=== PATIENT | male | born 1955 | race Caucasian/White ===

== ENCOUNTER 2023-01-18 17:26 | Observation (INO) | payer MEDICARE ==
[2023-01-18 18:36] LABS: PROTHROMBIN TIME 10.2 SEC (9.0-11.1); PTT,PARTIAL THROMBOPLSTIN TIME 28.5 SEC (23.6-29.8)
[2023-01-18] MEDS ORDERED: Apixaban 5 MG Tab PO ONE (18:44)
[2023-01-18] MEDS ORDERED: Acetaminophen 325 MG Tab PO PRN (21:15)
[2023-01-19] MEDS: Sertraline 50 MG Tab PO SCH ×3 (07:36→19:08)
[2023-01-19] MEDS ORDERED: Apixaban 5 MG Tab PO SCH (08:00)
[2023-01-19] MEDS ORDERED: Sodium Chloride 0.9% 10 ML Syringe FLUSH PRN (08:40)
[2023-01-19] MEDS: Pantoprazole 40 MG Tab.CR PO SCH (09:05)
[2023-01-19] MEDS: Enoxaparin 80 MG/0.8 ML Syringe SUBCUT SCH (14:45)
[2023-01-19] MEDS ORDERED: Tamsulosin 0.4 MG Cap.ER PO SCH (20:00)
[2023-01-19] MEDS ORDERED: atorvaSTATin 40 MG Tab PO SCH (20:00)
[2023-01-20] MEDS: Enoxaparin 80 MG/0.8 ML Syringe SUBCUT SCH ×2 (00:11→07:11)
[2023-01-20] MEDS: Pantoprazole 40 MG Tab.CR PO SCH (07:11)
[2023-01-20] MEDS: Sertraline 50 MG Tab PO SCH (07:11)
[2023-01-20 07:19] LABS: BASOPHILS ABSOLUTE AUTO 0.01 K/uL (0.00-0.20); BASOPHILS PERCENT AUTO 0.2 % (0.0-2.0); EOSINOPHILS ABSOLUTE AUTO 0.08 K/uL (0.00-0.50); EOSINOPHILS PERCENT AUTO 1.8 % (0.0-5.0); HEMATOCRIT 40.8 % (39.0-49.0); HEMOGLOBIN 13.4 g/dL (13.1-16.8); LYMPHOCYTES ABSOLUTE AUTO 1.62 K/uL (0.50-3.50); LYMPHOCYTES PERCENT AUTO 36.6 % (10.0-50.0); MEAN CORPUSCULAR HEMOGLOBIN 29.2 pg (28.2-33.3); MEAN CORPUSCULAR HGB CONC 32.8 g/dL (31.7-36.0); MEAN CORPUSCULAR VOLUME 88.9 fL (84.0-98.0); MONOCYTES ABSOLUTE AUTO 0.55 K/uL (0.00-1.00); MONOCYTES PERCENT AUTO 12.4 % (2.0-14.0); NEUTROPHILS ABSOLUTE AUTO 2.17 K/uL (1.40-7.00); PLATELET COUNT,PLT 278 K/uL (150-350); RED BLOOD CELL COUNT 4.59 M/uL (4.33-5.41); RED CELL DISTRIBUTION WIDTH 12.4 % (11.2-14.1); WHITE BLOOD CELL COUNT,WBC 4.4 K/uL (4.0-10.2)
[2023-01-20 07:31] LABS: ANION GAP 5.9 meq/L (7-15); CALCIUM 9.1 mg/dL (8.5-10.1); CARBON DIOXIDE,CO2 30.1 mmol/L (21.0-32.0); CREATININE 0.87 mg/dL (0.51-1.17); EST CRCL DRUG DOSING (CG) 80.8 mL/min; POTASSIUM,K 4.5 mmol/L (3.5-5.1)
== END 2023-01-20 14:34 | disposition home or self-care (01) ==
LOC: LL.ED 17:26 → LL.MS 19:30
PROVIDERS: ADMIT Emergency Medicine; ATTEND Emergency Medicine
DX: I26.99 Other pulmonary embolism without acute cor pulmonale (principal); E78.00 Pure hypercholesterolemia, unspecified; F41.9 Anxiety disorder, unspecified; F32.A Depression, unspecified; Z79.01 Long term (current) use of anticoagulants; Z79.899 Other long term (current) drug therapy
CPT/HCPCS: 36415; 80048; 85025; 85610; 85730; 96372; 99223; 99233; 99238; 99284; A9270-GY; G0378; J1650